=== PATIENT | male | born 1995 | race Caucasian/White ===

== ENCOUNTER 2017-02-23 19:33 | Emergency (ER) | payer OTHER ==
[~2017-02-23] VITALS: Ht 180.3 cm; Wt 93.2 kg
[~2017-02-23 19:33] MED LIST: NOCURR
[2017-02-23] MEDS ORDERED: IBUPROFEN 800 MG TABLET PO ONE (21:00)
[2017-02-23 21:47] VITALS: BP 124/86
== END 2017-02-23 21:54 | disposition home or self-care (01) ==
LOC: EMS 19:36
DX: S63.501A Unspecified sprain of right wrist, initial encounter (principal); E11.9 Type 2 diabetes mellitus without complications; J45.909 Unspecified asthma, uncomplicated; V00.131A Fall from skateboard, initial encounter; Y93.51 Activity, roller skating (inline) and skateboarding; Y92.89 Other specified places as the place of occurrence of the external cause; Y99.8 Other external cause status
CPT/HCPCS: 99284

== ENCOUNTER 2019-09-15 13:56 | Inpatient (IN) | payer MEDICAID ==
[~2019-09-15] VITALS: Ht 180.3 cm; Wt 96.6 kg
[2019-09-15 15:40] VITALS: BP 138/96
[2019-09-15] MEDS ORDERED: QUEtiapine FUMARATE 25 MG TABLET PO PRN (16:00)
[2019-09-15 16:52] VITALS: BP 133/82
[2019-09-15] MEDS ORDERED: ONDANSETRON HCL 4 MG TABLET PO PRN (17:15)
[2019-09-15] MEDS ORDERED: GuaiFENesin/D-METHORPHAN [SUGAR-FREE] 200-20MG/10 ML SYRUP UDCUP PO PRN (17:15)
[2019-09-15] MEDS ORDERED: MAG HYDROX/AL HYDROX/SIMETH ES 30 ML SUSPENSION UDCUP PO PRN (17:15)
[2019-09-15] MEDS ORDERED: NICOTINE 14 MG/24 HOUR PATCH TD PRN (17:15)
[2019-09-15] MEDS ORDERED: LOPERAMIDE HCL 2 MG CAPSULE PO PRN (17:15)
[2019-09-15] MEDS ORDERED: PETROLATUM,WHITE 28 GM JELLY TP PRN (17:15)
[2019-09-15] MEDS ORDERED: CloNIDine HCL 0.1 MG TABLET PO PRN (17:15)
[2019-09-15] MEDS ORDERED: ACETAMINOPHEN 325 MG TABLET PO PRN (17:15)
[2019-09-15] MEDS ORDERED: IBUPROFEN 400 MG TABLET PO PRN (17:15)
[2019-09-15] MEDS ORDERED: ALBUTEROL SULFATE HFA 90 MCG/PUFF 8 GM INHALER IH PRN (17:15)
[2019-09-15] MEDS ORDERED: MAGNESIUM HYDROXIDE SUSPENSION 30 ML UDCUP PO PRN (17:15)
[2019-09-15] MEDS ORDERED: DOCUSATE SODIUM 100 MG CAPSULE PO PRN (17:15)
[2019-09-15] MEDS: LORazepam 2 MG TABLET PO PRN (20:32)
[2019-09-16] MEDS ORDERED: INFLUENZA VIRUS VACCINE QVS 2019-20 (3YR+)/PF 60 MCG/0.5 ML SYRINGE IM ONE (02:30)
[2019-09-16 06:37] VITALS: BP 109/71
[2019-09-16 07:58] LABS: BASOPHILS % (AUTO) 0.4 % (0.0-2.0); EOSINOPHILS % (AUTO) 1.2 % (1.0-6.0); HEMATOCRIT 44.2 % (41-53); HEMOGLOBIN 14.5 g/dL (13.5-17.5); LYMPHOCYTES # (AUTO) 3.3 K/uL (1.0-4.8); LYMPHOCYTES % (AUTO) 46.4 % (22.0-44.0); MEAN CORPUSCULAR HEMOGLOBIN 27.1 pg (26.0-34.0); MEAN CORPUSCULAR HGB CONC 32.8 G/dL (31.0-37.0); MEAN CORPUSCULAR VOLUME 83 fL (80-100); MONOCYTES # (AUTO) 0.4 K/uL (0.1-1.0); MONOCYTES % (AUTO) 6.1 % (2.0-9.0); NEUTROPHILS # (AUTO) 3.3 K/uL (1.8-7.7); NEUTROPHILS % (AUTO) 45.9 % (40.0-70.0); PLATELET COUNT (AUTO) 222 K/uL (150-450); RED BLOOD CELL COUNT(AUTO) 5.35 MIL/uL (4.50-5.90)
[2019-09-16 08:00] VITALS: BP 138/79
[2019-09-16 08:07] LABS: HEMOGLOBIN A1C 5.9 % (4.5-6.2)
[2019-09-16 08:27] LABS: ALANINE AMINOTRANSFERASE 39 U/L (12-78); ALBUMIN 3.4 g/dL (3.4-5.0); ALKALINE PHOSPHATASE 98 U/L (46-116); ANION GAP 7 mmol/L (8-16); ASPARTATE AMINOTRANSFERASE 15 U/L (15-37); BILIRUBIN,TOTAL 0.5 mg/dL (0.1-1.0); CALCIUM, TOTAL 9.2 mg/dL (8.8-10.5); CARBON DIOXIDE 29 mmol/L (22-29); CHLORIDE 106 mmol/L (98-107); CHOL/HDL RATIO 5.1 (4.2-7.3); CHOLESTEROL 177 mg/dL (131-200); CREATININE 0.88 mg/dL (0.60-1.30); FREE T4 (FREE THYROXINE) 1.09 ng/dL (0.76-1.46); GLOMERULAR FILTR. RATE CALC > 60 mL/min (>60); GLUCOSE,RANDOM 87 mg/dL (70-110); HDL CHOLESTEROL 35 mg/dL (40-60); LDL CHOL (CALC.) 101 mg/dL (0-130); POTASSIUM 4.2 mmol/L (3.5-5.1); SODIUM SERUM 142 mmol/L (136-145); THYROID STIMULATING HORMONE 2.49 uIU/mL (0.36-3.74); TOTAL PROTEIN, SERUM 6.4 g/dL (6.4-8.2); TRIGLYCERIDES 203 mg/dL (15-150); UREA NITROGEN, BLOOD 10 mg/dL (7-18)
[2019-09-16] MEDS: QUEtiapine FUMARATE 100 MG TABLET PO SCH ×2 (10:19→20:23)
[2019-09-16] MEDS: LORazepam 2 MG TABLET PO PRN ×2 (10:19→16:12)
[2019-09-16 16:34] VITALS: BP 119/68
[2019-09-17 02:17] VITALS: BP 105/80
[2019-09-17 08:29] VITALS: BP 133/80
[2019-09-17] MEDS: QUEtiapine FUMARATE 100 MG TABLET PO SCH ×2 (09:13→20:38)
[2019-09-17 16:37] VITALS: BP 125/62
[2019-09-18] MEDS: QUEtiapine FUMARATE 100 MG TABLET PO SCH ×2 (08:18→20:42)
[2019-09-18] MEDS: LORazepam 2 MG TABLET PO PRN ×2 (08:18→16:34)
[2019-09-18 08:33] VITALS: BP 133/80
[2019-09-18 19:12] VITALS: BP 114/64
[2019-09-19 05:25] VITALS: BP 115/62
[2019-09-19 08:41] VITALS: BP 133/86
[2019-09-19] MEDS: QUEtiapine FUMARATE 100 MG TABLET PO SCH ×2 (08:49→21:07)
[2019-09-19] MEDS: LORazepam 2 MG TABLET PO PRN (16:21)
[2019-09-19 16:24] VITALS: BP 117/75
[2019-09-20 00:01] VITALS: BP 115/80
[2019-09-20 08:30] VITALS: BP 117/87
[2019-09-20] MEDS: QUEtiapine FUMARATE 100 MG TABLET PO SCH ×2 (08:58→21:01)
[2019-09-20] MEDS: LORazepam 2 MG TABLET PO PRN ×2 (08:58→16:16)
[2019-09-20 16:28] VITALS: BP 117/78
[2019-09-21 06:45] VITALS: BP 120/81
[2019-09-21 08:34] VITALS: BP 146/71
[2019-09-21] MEDS: QUEtiapine FUMARATE 100 MG TABLET PO SCH ×2 (08:43→20:30)
[2019-09-21 16:13] VITALS: BP 135/82
[2019-09-21] MEDS: LORazepam 2 MG TABLET PO PRN (16:15)
[2019-09-21] MEDS: ZOLPIDEM TARTRATE 10 MG TABLET PO PRN (20:30)
[2019-09-22 06:39] VITALS: BP 130/81
[2019-09-22] MEDS: QUEtiapine FUMARATE 100 MG TABLET PO SCH ×2 (08:17→20:41)
[2019-09-22 08:26] VITALS: BP 130/63
[2019-09-22 16:21] VITALS: BP 118/76
[2019-09-22] MEDS: ZOLPIDEM TARTRATE 10 MG TABLET PO PRN (20:41)
[2019-09-23 06:41] VITALS: BP 123/78
[2019-09-23 08:44] VITALS: BP 139/70
[2019-09-23] MEDS: QUEtiapine FUMARATE 100 MG TABLET PO SCH ×2 (08:58→20:50)
[2019-09-23] MEDS: OMEGA-3/DHA/EPA/FISH OIL 1,000 MG CAPSULE PO SCH (10:25)
[2019-09-23 16:13] VITALS: BP 139/71
[2019-09-24 06:10] VITALS: BP 125/78
[2019-09-24 08:24] VITALS: BP 129/68
[2019-09-24] MEDS: QUEtiapine FUMARATE 100 MG TABLET PO SCH (09:19)
[2019-09-24] MEDS: OMEGA-3/DHA/EPA/FISH OIL 1,000 MG CAPSULE PO SCH (09:19)
[2019-09-24 16:07] VITALS: BP_SYST 111; BP_SYST 143; BP_DIAS 73
[2019-09-24] MEDS: QUEtiapine FUMARATE 200 MG TABLET PO SCH (20:16)
[2019-09-24] MEDS: LORazepam 2 MG TABLET PO PRN (20:16)
[2019-09-25 05:20] VITALS: BP 133/77
[2019-09-25 08:34] VITALS: BP 117/80
[2019-09-25] MEDS: QUEtiapine FUMARATE 200 MG TABLET PO SCH ×2 (08:50→20:36)
[2019-09-25] MEDS: OMEGA-3/DHA/EPA/FISH OIL 1,000 MG CAPSULE PO SCH (08:50)
[2019-09-25] MEDS: LORazepam 2 MG TABLET PO PRN (16:18)
[2019-09-25 16:47] VITALS: BP 123/86
[2019-09-26 06:50] VITALS: BP 118/85
[2019-09-26 09:05] VITALS: BP 130/75
[2019-09-26] MEDS: QUEtiapine FUMARATE 200 MG TABLET PO SCH ×2 (10:13→20:06)
[2019-09-26] MEDS: OMEGA-3/DHA/EPA/FISH OIL 1,000 MG CAPSULE PO SCH (10:13)
[2019-09-26 16:08] VITALS: BP 114/69
[2019-09-27 06:46] VITALS: BP 114/54
[2019-09-27 08:23] VITALS: BP 131/68
[2019-09-27] MEDS: QUEtiapine FUMARATE 200 MG TABLET PO SCH ×2 (10:08→20:39)
[2019-09-27] MEDS: OMEGA-3/DHA/EPA/FISH OIL 1,000 MG CAPSULE PO SCH (10:08)
[2019-09-27 16:17] VITALS: BP 123/77
[2019-09-27] MEDS: LORazepam 2 MG TABLET PO PRN (16:50)
[2019-09-27 17:43] VITALS: BP 127/67
[2019-09-28 06:09] VITALS: BP 116/72
[2019-09-28 08:07] VITALS: BP 127/62
[2019-09-28] MEDS: QUEtiapine FUMARATE 200 MG TABLET PO SCH (08:45)
[2019-09-28] MEDS: OMEGA-3/DHA/EPA/FISH OIL 1,000 MG CAPSULE PO SCH (08:45)
[2019-09-28] MEDS ORDERED: QUET200T PO (11:11)
[2019-09-28] MEDS ORDERED: OMEG-135 PO (11:12)
== END 2019-09-28 13:30 | disposition home or self-care (01) | DRG 750 ==
LOC: B3A 15:59
PROVIDERS: ADMIT Psychiatry & Neurology Child & Adolescent Psychiatry; ATTEND Psychiatry & Neurology Child & Adolescent Psychiatry
DX: F20.0 Paranoid schizophrenia (principal); E11.9 Type 2 diabetes mellitus without complications; E78.5 Hyperlipidemia, unspecified; J45.909 Unspecified asthma, uncomplicated; R00.0 Tachycardia, unspecified; Z59.0 Homelessness
CPT/HCPCS: 83036; 84439; 84443; 87081

== ENCOUNTER 2022-04-03 15:02 | Emergency (ER) | payer MEDICAID, OTHER ==
[~2022-04-03] VITALS: Ht 177.8 cm; Wt 90.9 kg
[~2022-04-03 15:02] MED LIST changes: -NOCURR; +OMEG-108 PO; +QUET200T PO
[2022-04-03 18:57] VITALS: BP 118/76
[2022-04-03] MEDS ORDERED: NAPR-1025 PO (18:58)
[2022-04-03] MEDS ORDERED: METH-659 PO (18:58)
[2022-04-03] MEDS ORDERED: KETOROLAC TROMETHAMINE 10 MG TABLET PO ONE (19:00)
[2022-04-03] MEDS ORDERED: METHOCARBAMOL 500 MG TABLET PO ONE (19:00)
== END 2022-04-03 19:09 | disposition home or self-care (01) ==
LOC: EMS 15:07
DX: S16.1XXA Strain of muscle, fascia and tendon at neck level, initial encounter (principal); E11.9 Type 2 diabetes mellitus without complications; J45.909 Unspecified asthma, uncomplicated; M79.671 Pain in right foot; M79.672 Pain in left foot; X58.XXXA Exposure to other specified factors, initial encounter; Y93.66 Activity, soccer; Y92.89 Other specified places as the place of occurrence of the external cause; Y99.8 Other external cause status; Z88.8 Allergy status to other drugs, medicaments and biological substances
CPT/HCPCS: 99283